=== PATIENT | female | born 1980 | race Caucasian/White ===

== ENCOUNTER → 2016-05-24 | Outpatient (CLI) | payer BC, OTHER ==
[~2016-05-24] MED LIST: PREN1TAB29 PO; VENL100T2 PO
== END | disposition home or self-care (01) ==
LOC: C.PAPS 10:05
PROVIDERS: ATTEND Obstetrics & Gynecology
DX: Z01.419 Encounter for gynecological examination (general) (routine) without abnormal findings (principal)

== ENCOUNTER → 2016-06-13 | Outpatient (CLI) | payer BC, OTHER ==
[2016-06-13 12:31] LABS: HEMATOCRIT 37.3 % (37-47); MEAN CELL VOLUME 88.4 fL (80-100); MEAN CORPUSCULAR HEMOGLOBIN 30.6 pg (25-34); MEAN CORPUSCULAR HGB CONC 34.6 g/dl (32-36); MEAN PLATELET VOLUME 10.6 fL (7.4-10.4); PLATELET COUNT 264 K/uL (130-400); RED BLOOD COUNT 4.22 M/uL (4.2-5.4); WHITE BLOOD COUNT 3.83 K/uL (4.8-10.8)
[2016-06-13 12:58] LABS: ALT/SGPT 59 U/L (12-78); AST/SGOT 27 U/L (15-37); BLOOD UREA NITROGEN 11 mg/dl (7-18); BUN/CREATININE RATIO 17.3 (10-20); CALCIUM 8.4 mg/dl (8.5-10.1); CARBON DIOXIDE 27 mmol/L (21-32); CHLORIDE 104 mmol/L (98-107); CREATININE 0.64 mg/dl (0.60-1.20); GLUCOSE 76 mg/dl (70-99); HDL CHOLESTEROL 85 mg/dl; POTASSIUM 3.8 mmol/L (3.5-5.1); SODIUM 138 mmol/L (136-145)
[2016-06-13 13:12] LABS: ALKALINE PHOSPHATASE 44 U/L (45-117); CHOLESTEROL 163 mg/dl (0-200); CHOLESTEROL/HDL RATIO 1.9; LDL CHOLESTEROL CALCULATED 65 mg/dl; TRIGLYCERIDES 67 mg/dl (0-150); VERY LOW DENSITY LIPOPROT CALC 13 mg/dl
[2016-06-13 14:49] LABS: BASO % 0.5 %; BASO ABS # 0.02 K/uL (0-0.2); COMPLETE YES; EOS % 0.5 %; LYMPH % 50.4 %; LYMPH ABS # 1.93 K/uL (1.2-3.4); MONO % 8.4 %; NEUT % 40.2 %
[2016-06-13 14:50] LABS: SMUDGE CELLS PRESENT
== END | disposition home or self-care (01) ==
LOC: C.LAB1850 11:03
PROVIDERS: ATTEND Family Medicine
DX: Z13.220 Encounter for screening for lipoid disorders (principal); R53.83 Other fatigue

== ENCOUNTER → 2017-03-13 | Outpatient (CLI) | payer BC, OTHER | END | disposition home or self-care (01) | LOC: C.LABSPEC 14:06 | PROVIDERS: ATTEND Family Medicine | DX: J02.9 Acute pharyngitis, unspecified (principal) ==

== ENCOUNTER → 2017-10-01 | Outpatient (CLI) | payer BC ==
[2017-10-01 12:49] LABS: BASO % 0.2 %; BASO ABS # 0.01 K/uL (0-0.2); EOS % 0.8 %; EOS ABS # 0.04 K/uL (0-0.5); HEMATOCRIT 36.4 % (37-47); HEMOGLOBIN 12.2 g/dL (12.0-16.0); IG# 0.01 K/uL (0.00-0.02); LYMPH % 39.8 %; LYMPH ABS # 2.06 K/uL (1.2-3.4); MEAN CELL VOLUME 88.8 fL (80-100); MEAN CORPUSCULAR HEMOGLOBIN 29.8 pg (25-34); MEAN CORPUSCULAR HGB CONC 33.5 g/dl (32-36); MEAN PLATELET VOLUME 10.3 fL (7.4-10.4); MONO ABS # 0.31 K/uL (0.11-0.59); NEUT ABS # 2.74 K/uL (1.4-6.5); PLATELET COUNT 297 K/uL (130-400); RED CELL DISTRIBUTION WIDTH CV 12.2 % (11.5-14.5); RED CELL DISTRIBUTION WIDTH SD 39.4 fL (36.4-46.3); WHITE BLOOD COUNT 5.17 K/uL (4.8-10.8)
== END | disposition home or self-care (01) ==
LOC: C.LABPBG 10:52
PROVIDERS: ATTEND Family Medicine
DX: G25.81 Restless legs syndrome (principal); G47.19 Other hypersomnia; E55.9 Vitamin D deficiency, unspecified

== ENCOUNTER → 2017-10-16 | Outpatient (CLI) | payer BC ==
--- NOTE | 2017-10-24 12:36 | CODING QUERY NO DIAGNOSIS ---
TREATMENT RENDERED WITHOUT A DIAGNOSIS To promote full compliance with coding requirements relating to patient care, physician participation is requested in all cases of foot setter uncertainty. Please assist us with providing a diagnosis/symptom for the test(s) below: A diagnosis/symptom was not documented on your Order. A valid diagnosis/symptom is required to bill all insurances. Please remember that we are unable to code a diagnosis of rule out, probable, possible, questionable, or suspected. Tests that require a diagnosis: DOS: 10/16/17 * [facility] CONF GCMS, URINE DIAGNOSIS: * DRUG PROFILE - [facility] URINE DIAGNOSIS: Provider Signature: Date: Thank you Vikki [facility] Information Management Once completed, please kindly fax back to [phone] For questions please call [phone]
== END | disposition home or self-care (01) ==
LOC: C.LABPBG 13:43
PROVIDERS: ATTEND Family Medicine
DX: G47.19 Other hypersomnia (principal); V89.2XXA Person injured in unspecified motor-vehicle accident, traffic, initial encounter